=== PATIENT | male | born 1950 | race Two or more races ===

== ENCOUNTER 2017-09-04 06:43 | Outpatient (CLI) | payer OTHER ==
[~2017-09-04 06:43] MED LIST: CEFADROXIL500 MG PO; INTEGRA F CAPSULE PO; PROTEINEX1 TA1 PO; ULTRACET PO; XARELTO10 MG PO
== END 2017-09-04 16:13 | disposition home or self-care (01) ==
LOC: LAB 06:43
DX: E55.9 Vitamin D deficiency, unspecified (principal); E56.1 Deficiency of vitamin K; M85.88 Other specified disorders of bone density and structure, other site

== ENCOUNTER 2017-11-13 07:17 | Outpatient (CLI) | payer OTHER | END 2017-11-13 07:25 | disposition home or self-care (01) | LOC: LAB 07:17 | DX: I10 Essential (primary) hypertension (principal); D53.1 Other megaloblastic anemias, not elsewhere classified; E04.0 Nontoxic diffuse goiter; K76.1 Chronic passive congestion of liver; E11.9 Type 2 diabetes mellitus without complications; E78.2 Mixed hyperlipidemia ==

== ENCOUNTER 2018-03-08 06:55 | Outpatient (CLI) | payer OTHER | END 2018-03-08 07:00 | disposition home or self-care (01) | LOC: LAB 06:55 | DX: E55.9 Vitamin D deficiency, unspecified (principal); E56.1 Deficiency of vitamin K; M89.8X8 Other specified disorders of bone, other site ==

== ENCOUNTER 2018-05-07 10:20 | Outpatient (CLI) | payer OTHER | END 2018-05-07 10:46 | disposition home or self-care (01) | LOC: NUCLEAR 10:20 | DX: M81.0 Age-related osteoporosis without current pathological fracture (principal) ==

== ENCOUNTER 2018-08-13 06:43 | Outpatient (CLI) | payer OTHER | END 2018-08-13 06:49 | disposition home or self-care (01) | LOC: LAB 06:43 | DX: E11.65 Type 2 diabetes mellitus with hyperglycemia (principal); N39.0 Urinary tract infection, site not specified; N40.1 Benign prostatic hyperplasia with lower urinary tract symptoms; E03.8 Other specified hypothyroidism; E78.2 Mixed hyperlipidemia; D68.8 Other specified coagulation defects; Z12.11 Encounter for screening for malignant neoplasm of colon; J45.998 Other asthma ==

== ENCOUNTER → 2018-09-11 06:49 | Outpatient (CLI) | payer OTHER | END | disposition home or self-care (01) | LOC: LAB 06:49 | DX: D51.0 Vitamin B12 deficiency anemia due to intrinsic factor deficiency (principal); K75.4 Autoimmune hepatitis; K76.0 Fatty (change of) liver, not elsewhere classified; B15.9 Hepatitis A without hepatic coma; B17.10 Acute hepatitis C without hepatic coma ==

== ENCOUNTER 2018-09-12 07:31 | Outpatient (CLI) | payer OTHER | END 2018-09-12 07:33 | disposition home or self-care (01) | LOC: SONOGRAMA 07:31 | DX: K76.0 Fatty (change of) liver, not elsewhere classified (principal) ==

== ENCOUNTER 2018-12-18 06:53 | Outpatient (CLI) | payer OTHER | END 2018-12-18 07:01 | disposition home or self-care (01) | LOC: LAB 06:53 | DX: D64.89 Other specified anemias (principal); N39.0 Urinary tract infection, site not specified; K00-K95 Diseases of the digestive system; D68.8 Other specified coagulation defects; K71.3 Toxic liver disease with chronic persistent hepatitis; C22.0 Liver cell carcinoma ==

== ENCOUNTER 2019-08-26 12:38 | Emergency (ER) | payer OTHER ==
[~2019-08-26] VITALS: Ht 162.6 cm; Wt 61.2 kg
== END 2019-08-26 15:53 | disposition home or self-care (01) ==
LOC: ER 12:38
DX: B34.9 Viral infection, unspecified (principal); R05 Cough; F10.20 Alcohol dependence, uncomplicated; F17.290 Nicotine dependence, other tobacco product, uncomplicated

== ENCOUNTER 2020-07-05 09:01 | Outpatient (CLI) | payer OTHER | END 2020-07-05 09:02 | disposition home or self-care (01) | LOC: PPH VACUNA 09:01 | PROVIDERS: ATTEND Emergency Medicine Pediatric Emergency Medicine | DX: Z23 Encounter for immunization (principal) ==

== ENCOUNTER 2020-12-21 13:35 | Outpatient (CLI) | payer OTHER | END 2020-12-21 13:37 | disposition home or self-care (01) | LOC: NUCLEAR 13:35 | DX: M81.0 Age-related osteoporosis without current pathological fracture (principal) ==

== ENCOUNTER → 2021-01-11 08:18 | Outpatient (CLI) | payer OTHER ==
[~2021-01-11 08:18] MED LIST changes: +CETAPHIL MOIST473 ML TOP; +MYCO NAIL30 ML TOP
== END | disposition home or self-care (01) ==
LOC: LAB 08:18
PROVIDERS: ATTEND Orthopaedic Surgery
DX: M85.89 Other specified disorders of bone density and structure, multiple sites (principal); E88.89 Other specified metabolic disorders; M81.8 Other osteoporosis without current pathological fracture; E83.42 Hypomagnesemia; E56.1 Deficiency of vitamin K

== ENCOUNTER 2021-01-13 07:57 | Emergency (ER) | payer OTHER ==
[~2021-01-13] VITALS: Ht 162.6 cm; Wt 58.5 kg
[~2021-01-13 07:57] MED LIST changes: -CETAPHIL MOIST473 ML TOP; -MYCO NAIL30 ML TOP
[2021-01-13] MEDS ORDERED: MYCO NAIL30 ML TOP (12:26)
[2021-01-13] MEDS ORDERED: CETAPHIL MOIST473 ML TOP (12:26)
== END 2021-01-13 12:52 | disposition home or self-care (01) ==
LOC: ER 07:57
DX: B35.1 Tinea unguium (principal)

== ENCOUNTER 2021-03-10 07:07 | Outpatient (CLI) | payer OTHER ==
[~2021-03-10 07:07] MED LIST changes: +CETAPHIL MOIST473 ML TOP; +MYCO NAIL30 ML TOP
== END 2021-03-10 07:08 | disposition home or self-care (01) ==
LOC: LAB 07:07
PROVIDERS: ATTEND Internal Medicine Cardiovascular Disease
DX: I10 Essential (primary) hypertension (principal); E11.9 Type 2 diabetes mellitus without complications; E03.8 Other specified hypothyroidism; E78.2 Mixed hyperlipidemia; Z12.11 Encounter for screening for malignant neoplasm of colon; E55.9 Vitamin D deficiency, unspecified; N40.0 Benign prostatic hyperplasia without lower urinary tract symptoms

== ENCOUNTER 2021-03-14 06:59 | Outpatient (CLI) | payer OTHER | END 2021-03-14 07:08 | disposition home or self-care (01) | LOC: LAB 06:59 | PROVIDERS: ATTEND Orthopaedic Surgery | DX: E56.1 Deficiency of vitamin K (principal); M85.88 Other specified disorders of bone density and structure, other site; E55.9 Vitamin D deficiency, unspecified; B35.1 Tinea unguium ==

== ENCOUNTER 2021-06-01 11:35 | Outpatient (CLI) | payer OTHER | END 2021-06-01 12:51 | disposition home or self-care (01) | LOC: LAB 11:35 | DX: B35.1 Tinea unguium (principal) ==

== ENCOUNTER 2021-07-21 06:13 | Outpatient (CLI) | payer OTHER | END 2021-07-21 06:26 | disposition home or self-care (01) | LOC: LAB 06:13 | PROVIDERS: ATTEND Internal Medicine Endocrinology, Diabetes & Metabolism | DX: D53.9 Nutritional anemia, unspecified (principal); I10 Essential (primary) hypertension; K76.1 Chronic passive congestion of liver; N39.0 Urinary tract infection, site not specified; D56.1 Beta thalassemia; E78.2 Mixed hyperlipidemia; E11.9 Type 2 diabetes mellitus without complications; E58 Dietary calcium deficiency; K75.1 Phlebitis of portal vein ==

== ENCOUNTER 2021-07-21 07:15 | Outpatient (CLI) | payer OTHER | END 2021-07-21 07:16 | disposition home or self-care (01) | LOC: SONOGRAMA 07:15 | PROVIDERS: ATTEND Internal Medicine Endocrinology, Diabetes & Metabolism | DX: K76.1 Chronic passive congestion of liver (principal); R10.0 Acute abdomen ==

== ENCOUNTER 2021-09-02 07:24 | Outpatient (CLI) | payer OTHER | END 2021-09-02 07:48 | disposition home or self-care (01) | LOC: TOM 07:24 | PROVIDERS: ATTEND Internal Medicine Gastroenterology | DX: K76.0 Fatty (change of) liver, not elsewhere classified (principal); R63.4 Abnormal weight loss ==

== ENCOUNTER 2021-09-05 07:24 | Outpatient (CLI) | payer OTHER | END 2021-09-05 07:33 | disposition home or self-care (01) | LOC: LAB 07:24 | PROVIDERS: ATTEND Orthopaedic Surgery | DX: E55.9 Vitamin D deficiency, unspecified (principal); M85.9 Disorder of bone density and structure, unspecified; E56.1 Deficiency of vitamin K ==

== ENCOUNTER 2022-03-21 10:14 | Outpatient (CLI) | payer OTHER | END 2022-03-21 10:20 | disposition home or self-care (01) | LOC: TOM 10:14 | PROVIDERS: ATTEND Physical Medicine & Rehabilitation | DX: I63.9 Cerebral infarction, unspecified (principal) ==